=== PATIENT | male | born 1990 | race African-American/Black ===

== ENCOUNTER 2022-09-15 08:24 | Emergency (ER) | payer MEDICAID ==
[~2022-09-15] VITALS: Ht 175.3 cm; Wt 75.0 kg
[2022-09-15 08:39] VITALS: BP 122/84
[2022-09-15 09:12] LABS: Urine Bacteria NONE SEEN /hpf (None Seen); Urine Blood 1+ /uL (Negative); Urine Mucus FEW (None Seen); Urine Specific Gravity 1.019 (1.001-1.035); Urine WBC 36 /hpf (0 - 3); Urine WBC Clumps PRESENT /hpf (None Seen)
[2022-09-15] MEDS ORDERED: cefTRIAXone SOD 1,000 MG VL IM STA (09:51)
[2022-09-15] MEDS ORDERED: ACETAMINOPHEN 500 MG TAB PO ONE (10:00)
[2022-09-15] MEDS ORDERED: CIPR500T4 PO (11:17)
[2022-09-15] MEDS ORDERED: IBUP-1454 PO (11:17)
== END 2022-09-15 12:02 | disposition home or self-care (01) ==
LOC: ER 08:24
DX: N39.0 Urinary tract infection, site not specified (principal); N45.3 Epididymo-orchitis; M54.50 Low back pain, unspecified
CPT/HCPCS: 76870; 81001; 87491; 87591; 96372; 99285; J0696

== ENCOUNTER 2023-10-12 10:00 | Emergency (ER) | payer MEDICAID ==
[~2023-10-12] VITALS: Ht 180.3 cm; Wt 78.5 kg
[~2023-10-12 10:00] MED LIST: CIPR500T4 PO; IBUP-1454 PO
[2023-10-12 10:17] VITALS: BP 120/83; PULSE 81; RESP 16; TEMP 98.4; O2SAT 100
[2023-10-12] MEDS ORDERED: AUG875T PO (12:08)
[2023-10-12] MEDS ORDERED: METH4PAK PO (12:08)
[2023-10-12] MEDS ORDERED: NAPR-746 PO (12:08)
[2023-10-12] MEDS: DexAMETHasone SOD PHOS 10MG/1ML VIAL INJ IM ONE (12:17)
[2023-10-12] MEDS: cefTRIAXone SOD 1,000 MG VL IM ONE (12:17)
== END 2023-10-12 12:58 | disposition home or self-care (01) ==
LOC: ER 10:00
DX: R22.0 Localized swelling, mass and lump, head (principal); M27.2 Inflammatory conditions of jaws
CPT/HCPCS: 96372; 99284; J0696; J1100